=== PATIENT | female | born 1990 | race Caucasian/White ===

== ENCOUNTER 2024-02-23 16:38 | Outpatient (CLI) | payer OTHER ==
--- NOTE | 2024-02-24 10:04 | MRI Report ---
PROCEDURE: Knee RT WO INDICATIONS: RIGHT KNEE PAIN TECHNIQUE: Noncontrast sagittal PD fast spin echo and T2 fast spin echo with fat saturation, sagittal 3-D gradie nt sequence with fat saturation; coronal T1 spin echo and PD fast spin echo with fat saturation, and axial PD fast spin echo with fat saturation through the knee. COMPARISON: None. FINDINGS: Image quality: Excellent. Menisci: The medial and lateral menisci demonstrate normal morphology and internal signal. The meni scal root ligaments appear intact. Cruciate ligaments: The anterior cruciate ligament is mildly thickened with intrasubstance T2 hyperi ntense signal near its tibial insertion. The posterior cruciate ligament is intact. Medial structures: The medial collateral ligament appears intact. Visualized portions of the pes ans erinus tendons appear normal. No abnormal bursal fluid. Lateral structures: The lateral collateral ligament, long and short heads of the biceps femoris tend on appear intact. The popliteus tendon appears normal. Iliotibial band appears normal. Anterior structures: The quadriceps and patellar tendons appear intact. Patellar alignment is dinesh l. No femoral trochlear dysplasia or ventral trochlear prominence. No edema in the infrapatellar fa t pad. Bones and cartilage: No bone marrow contusions or fractures. 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 Joint space: There is small knee joint fluid. No Patel's cyst. Normal appearing synovial plicae ar e incidentally noted. IMPRESSION: 1. Finding is suggestive of low-grade ACL sprain/intrasubstance partial thickness tear near its tibia l insertion. The PCL is intact. 2. No evidence of focal meniscal tear. 3. No marrow edema. No fracture or dislocation. 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 Small joint effusion, no loose bodies. Reviewed by: Les Garcia MD on 02/24/2024 10:03 AM PDT Approved by: Les Garcia MD on 02/24/2024 10:03 AM PDT Station ID: [id number]
== END 2024-02-23 16:39 | disposition home or self-care (01) ==
LOC: DI 16:38
PROVIDERS: ATTEND Nurse Practitioner Family
DX: M94.261 Chondromalacia, right knee (principal); M25.461 Effusion, right knee